=== PATIENT | female | born 1985 | race Caucasian/White ===

== ENCOUNTER 2018-02-15 11:33 | Emergency (ER) | payer MEDICAID ==
[~2018-02-15] VITALS: Ht 160 cm; Wt 89.5 kg
[~2018-02-15 11:33] MED LIST: ALBU18HF2 INH; AMLO5TAB16 PO; ATOR20TA PO; BUDE10.22 INH; FOLI1TAB16 PO; KEP500T PO; LISI10TA4 PO; MULT-1179 PO; SERT25TA PO; THI100T PO
[2018-02-15] MEDS ORDERED: LORazepam 2 mg/ml vial IV ONE (12:10)
[2018-02-15] MEDS ORDERED: normal saline 1000ML IV soln IVB ONE (12:10)
[2018-02-15] MEDS ORDERED: ondansetron/PF 4mg/2ml inj IV ONE (12:10)
[2018-02-15] MEDS ORDERED: GABA-532 PO (12:13)
[2018-02-15 12:42] VITALS: BP 132/72
== END 2018-02-15 12:46 | disposition home or self-care (01) ==
LOC: ER 11:33
DX: F10.239 Alcohol dependence with withdrawal, unspecified (principal); R56.9 Unspecified convulsions; R11.10 Vomiting, unspecified; F12.90 Cannabis use, unspecified, uncomplicated; E11.9 Type 2 diabetes mellitus without complications; Z90.89 Acquired absence of other organs; Z98.890 Other specified postprocedural states; Z88.1 Allergy status to other antibiotic agents; Z88.8 Allergy status to other drugs, medicaments and biological substances; Z79.899 Other long term (current) drug therapy
CPT/HCPCS: 96361; 96374; 96375; 99284; J2060; J2405

== ENCOUNTER 2020-10-11 11:18 | Emergency (ER) | payer MEDICAID ==
[~2020-10-11] VITALS: Ht 157.5 cm; Wt 92.0 kg
[~2020-10-11 11:18] MED LIST changes: -AMLO5TAB16 PO; -ATOR20TA PO; -BUDE10.22 INH; -FOLI1TAB16 PO; +GABA-532 PO; -KEP500T PO; +LISI10TA27 PO; -LISI10TA4 PO; -MULT-1179 PO; +NALT50TA PO; +QUET50TA22 PO; -SERT25TA PO; -THI100T PO
[2020-10-11] MEDS ORDERED: HYDROcodone/acetaminophen 10/325mg tab PO ONE (11:35)
[2020-10-11 12:11] VITALS: BP 124/70
[2020-10-11] MEDS ORDERED: HYDR-3972 PO (12:13)
== END 2020-10-11 12:38 | disposition home or self-care (01) ==
LOC: ER 11:19
DX: S92.514A Nondisplaced fracture of proximal phalanx of right lesser toe(s), initial encounter for closed fracture (principal); G40.909 Epilepsy, unspecified, not intractable, without status epilepticus; E11.9 Type 2 diabetes mellitus without complications; F12.90 Cannabis use, unspecified, uncomplicated; Z98.890 Other specified postprocedural states; Z88.8 Allergy status to other drugs, medicaments and biological substances; Z79.899 Other long term (current) drug therapy; W22.042A Striking against wall of swimming pool causing other injury, initial encounter; Z91.81 History of falling; Y93.89 Activity, other specified; Y92.89 Other specified places as the place of occurrence of the external cause; Y99.8 Other external cause status
CPT/HCPCS: 73610; 73630; 99284

== ENCOUNTER 2023-04-12 15:47 | Emergency (ER) | payer MEDICAID ==
[~2023-04-12] VITALS: Ht 157.5 cm; Wt 72.7 kg
[~2023-04-12 15:47] MED LIST changes: -QUET50TA22 PO; +QUET50TA24 PO
[2023-04-12 16:33] VITALS: BP 114/88; PULSE 115; RESP 18; TEMP 97.3; O2SAT 100
== END 2023-04-12 23:34 | disposition left against medical advice (07) ==
LOC: ER 15:48
DX: M79.632 Pain in left forearm (principal); L03.114 Cellulitis of left upper limb; Z53.21 Procedure and treatment not carried out due to patient leaving prior to being seen by health care provider
CPT/HCPCS: 99281

== ENCOUNTER 2024-07-10 10:23 | Emergency (ER) | payer MEDICAID ==
[~2024-07-10] VITALS: Ht 154.9 cm; Wt 76.4 kg
[~2024-07-10 10:23] MED LIST changes: -NALT50TA PO; +NALT50TA5 PO
[2024-07-10 10:27] VITALS: BP 152/99; PULSE 96; RESP 16; TEMP 97.5; O2SAT 99
== END 2024-07-10 11:02 | disposition left against medical advice (07) ==
LOC: ER 10:23
DX: Z48.02 Encounter for removal of sutures (principal); Z88.8 Allergy status to other drugs, medicaments and biological substances; Z53.21 Procedure and treatment not carried out due to patient leaving prior to being seen by health care provider